=== PATIENT | male | born 1965 | race Native Hawaiian/Other Pacific Islander ===

== ENCOUNTER 2016-11-01 16:53 | Emergency (ER) | payer OTHER ==
[~2016-11-01] VITALS: Ht 172.7 cm; Wt 77.1 kg
[2016-11-01 18:17] LABS: PLATELET COUNT 181 K/uL (142-355)
[2016-11-01 18:27] LABS: POTASSIUM 3.6 mmol/L (3.6-5.2); SODIUM 135 mmol/L (136-145)
== END 2016-11-01 18:49 | disposition home or self-care (01) ==
LOC: ED 16:53
PROVIDERS: Family Medicine
DX: R11.2 Nausea with vomiting, unspecified (principal); R06.02 Shortness of breath; R05 Cough
CPT/HCPCS: 74022; 80053; 82150; 83690; 85027; 94664; 99283